=== PATIENT | female | born 2000 | race Two or more races ===

== ENCOUNTER 2023-10-26 17:11 | Emergency (ER) | payer OTHER, SELFPAY ==
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
[2023-10-26 17:31] VITALS: BP 126/87; PULSE 72; O2SAT 100
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
[2023-10-26 17:44] VITALS: BP 113/73; PULSE 75; RESP 16; TEMP 36.6; O2SAT 98; BMI 26.7
[2023-10-26 18:27] LABS: UPreg QC Valid YES; Urine Pregnancy NEGATIVE (NEGATIVE)
[2023-10-26 21:50] VITALS: BP 114/73; PULSE 68; RESP 16; TEMP 37.1; O2SAT 98
[2023-10-26 23:39] VITALS: BP 108/68; PULSE 67; RESP 16; TEMP 37.1; O2SAT 97
[2023-10-26 23:58] VITALS: BP 108/68; PULSE 67; RESP 16; TEMP 37.1; O2SAT 97
== END 2023-10-27 | disposition home or self-care (01) ==
PROVIDERS: Registered Nurse Emergency; Emergency Provider Student in an Organized Health Care Education/Training Program
DX: S16.1XXA Strain of muscle, fascia and tendon at neck level, initial encounter (principal); S46.911A Strain of unspecified muscle, fascia and tendon at shoulder and upper arm level, right arm, initial encounter; V43.52XA Car driver injured in collision with other type car in traffic accident, initial encounter; Y93.89 Activity, other specified; Y92.410 Unspecified street and highway as the place of occurrence of the external cause; Y99.9 Unspecified external cause status; R51.9 Headache, unspecified; M54.2 Cervicalgia; R07.9 Chest pain, unspecified; M25.511 Pain in right shoulder
CPT/HCPCS: 70450; 71045; 72125; 73030; 81025; 99284